=== PATIENT | female | born 1935 | race Caucasian/White ===

== ENCOUNTER 2018-11-16 17:07 | Inpatient (IN) ==
[2018-11-16] MEDS ORDERED: Ondansetron ODT 4 MG TAB.RAPDIS SL PRN (18:25)
[2018-11-16] MEDS ORDERED: Mag Hydrox/Al Hydrox/Simeth 30 ML UDC PO PRN (18:28)
[2018-11-16] MEDS ORDERED: D5% in Water 1,000 ML IVC PRN (18:30)
[2018-11-16] MEDS ORDERED: Dextrose Gel 15 GM/37.5 ML TUBE PO PRN ×2 (18:30)
[2018-11-16] MEDS ORDERED: *HR* Dextrose 50 % in Water (Syg) 50 ML SYRINGE IVP PRN (18:30)
[2018-11-16] MEDS: Insulin LISPRO 300 UNITS/3 ML VIAL SQ SCH (20:35)
[2018-11-16] MEDS: hydrALAZINE 25 MG TABLET PO SCH (23:27)
[2018-11-17] MEDS: cloNIDine HCl 0.1 MG TABLET PO PRN (04:31)
[2018-11-17] MEDS: *HR* Enoxaparin 30 MG/0.3 ML SYRINGE SQ SCH (04:31)
[2018-11-17 05:37] LABS: Basophils # 0.1 K/mcL (0.0-0.2); Basophils % 0.5 %; Eosinophils # 0.3 K/mcL (0.0-0.6); Eosinophils % 3.1 %; Hematocrit 25.6 % (35.3-44.9); Hemoglobin 8.3 g/dL (11.5-15.4); Immature Granulocytes % 0.5 % (0-4); Lymphocytes # 1.3 K/mcL (0.6-4.6); Lymphocytes % 11.6 %; Mean Corpuscular HGB Conc 32.4 g/dL (31.6-35.5); Mean Corpuscular Hemoglobin 26.6 pg (28.0-33.3); Mean Corpuscular Volume 82.1 fL (83.0-100.0); Mean Platelet Volume 9.8 fL (9.4-12.4); Monocytes # 0.9 K/mcL (0.0-1.3); Monocytes % 8.3 %; Neutrophils # 8.4 K/mcL (1.6-8.9); Platelet Count 237 K/mcL (140-400); Red Blood Count 3.12 M/mcL (3.82-4.97); Red Cell Distribution Width 17.1 % (11.5-14.5)
[2018-11-17 05:40] LABS: Prothrombin Time 11.4 Seconds (9.4-12.1)
[2018-11-17 05:42] LABS: Activated Partial Thrombo Time 33.2 Seconds (26.0-36.0)
[2018-11-17] MEDS: Insulin LISPRO 300 UNITS/3 ML VIAL SQ SCH ×4 (08:01→21:21)
[2018-11-17] MEDS: Furosemide 20 MG TABLET PO SCH (08:15)
[2018-11-17] MEDS: amLODIPine 5 MG TABLET PO SCH (08:15)
[2018-11-17] MEDS: Diltiazem CD (24hr) 180 MG CAPSULE PO SCH (08:16)
[2018-11-17] MEDS: Aspirin Enteric Coated 81 MG Tablet PO SCH (08:16)
[2018-11-17] MEDS: hydrALAZINE 25 MG TABLET PO SCH ×3 (08:16→23:11)
[2018-11-17] MEDS: (Ezetimibe 10 MG) PO SCH (08:17)
[2018-11-17] MEDS: Isosorbide MONOnitrate (24 HR) 60 MG TAB.ER.24H PO SCH (08:19)
[2018-11-17 08:47] LABS: Albumin 3.4 g/dL (3.5-5.7); Albumin/Globulin Ratio 1.5 (1.1-2.2); Bilirubin,Total 0.4 mg/dL (0.3-1.0); Calcium 8.5 mg/dL (8.6-10.3); Globulin 2.3 g/dL (2.4-3.5); Magnesium 1.9 mg/dL (1.6-2.6); Potassium 3.2 mEq/L (3.5-5.1); Total Protein 5.7 g/dL (6.4-8.9)
--- NOTE | 2018-11-17 10:39 | Internal Med History&Physical ---
Date of Encounter: 11/17/18 Time of Encounter: 10:29 Assessment and Plan (1) Non-ST elevation UT (NSTEMI) Current visit: Yes Status: Acute Patient was admitted to this facility for further cardiac rehabilitation due to deconditioning. Patient presented with chest pain and was ruled in as an UT at [facility]. Patient had a catheterization on 11/10/18, with a PTCA of the circumflex. Patient also had experienced uncontrolled hypertension at time of admission. Patient states that she has had no further chest pain or palpitations since her catheterization. Denies any dyspnea during exertion. Therapy evaluation with recommendations are pending. Vital signs have been stable during her stay. We will continue with current medications (2) HTN (hypertension) Current visit: No Status: Chronic Patient with a recent history of uncontrolled hypertension during her admission [facility]. Currently patient's systolic blood pressure is stable but has been slightly elevated at 150-160. We will evaluate her current medications for titration with a systolic blood pressure goal of less than 150. Qualifiers: Hypertension type: unspecified Qualified Code(s): I10 - Essential (primary) hypertension (3) Diabetes Current visit: No Status: Chronic No acute issues noted. Patient's glucoses been fairly well controlled with most readings less than 150. We will continue with current medications Qualifiers: Diabetes mellitus type: type 2 Diabetes mellitus halfway insulin use: [facility] halfway use Diabetes mellitus complication status: with other sp ecified complication Qualified Code(s): E11.69 - Type 2 diabetes mellitus with other specified complication (4) CKD (chronic kidney disease) Current visit: No Status: Chronic Patient with history of chronic kidney disease. Most recent creatinine is at 2.01. We will continue with current medications and monitor patient's renal status to serial labs. Qualifiers: Qualified Code(s): N18.9 - Chronic kidney disease, unspecified (5) Chronic diastolic (congestive) heart failure Current visit: No Status: Chronic No acute issues. Lungs are clear. Patient denies any palpitations or chest discomforts. Noted slight nonpitting edema to lower extremities. Most recent BNP at 390 We will continue with current medications and with daily weights Internal Medicine - H&P: HPI Chief complaint: Coronary Artery Disease Admitted From: Hospital to Hospital Transfer Plans for Post Hospital Care: Home History of present illness: Ms. Elizabeth is a 83 year old female with known PMH of HTN and CKD-3. She was sent to the ED at [facility] after being evaluated at the Cardiovascular center and was found that her BP was elevated @ 252/100 prior to the stress test. Pt stated she has left chest wall pain the prior night, which radiated to her left shoulder and arm. Her pain was 7/10 in severity, pressure like, felt numbness in left arm and lasted for 2 hrs. Pt did mention she has been having intermittent CP for few months. In the ER her EKG showed NSR with chronic LBBB. She was found to have elevated troponins rule out acute UT. She was seen by cardiology but cath had to be delayed for suspected GI bleed after patient was on full anticoagulation. She was seen by GI for suspected GI bleed and had EGD done showing grade C erosive esophagitis and non bleeding angiectasia. It was recommended to continue PPI BI and transfuse PRBC to keep hgb> 8. Cardiac cath was delayed after endoscopy for about a week for complications with worsening shortness of breath secondary to acute worsening of chronic diastolic CHF which resolved with diuresis She underwent a left heart cath on 11/10 showing 85% stenosis to circ OM with drug eluting stent placement. She is to continue aspirin and plavix . She was transfused 1 unit PRBC to keep hgb > 8. She has resistant hypertension and is b eing followed by nephrology for secondary causes of hypertension. BP has been stable while being managed with coreg, cardizem, hydralazine and amlodipine. She was on losartan and chlorthalidone which had to be discontinued due to kidney disease. Patient was transferred to this facility for further cardiac rehabilitation due to deconditioning. Patient states that she has not had any further chest pain since her catheterization and denies any palpitations or dyspnea. No further reported signs of active GI bleeding has been noted per medical records. Patient states that she has been participating in therapy today during her evaluation and felt fine. Vital signs have remained stable during her stay Past Med Surg Social Fam HX - Past Medical History Medical history: CHF, coronary artery disease, GERD, GI bleed, hyperlipidemia, hypertension, renal disease, thyroid disease, other Additional medical history: Stage 3 kidney failure, diverticulitis, Diabetes Psychiatric history: anxiety - Past Surgical History Surgical History: non-contributory Additional surgical history: sinus surgery x5, eye surgeries x5, tubal ligation, tonisllectomy, left foot surgery, heart cath x 1 stent - Social History Smoking Status: Former smoker Smokeless Tobacco Status: No Alcohol use: none Drug use: none - Family History Mother Living Status: Cause of : lung cancer Father Living Status: Cause of : heart attack Internal Medicine - H&P: Meds Alendronate Sodium [Fosamax] 70 mg PO JESSICA 10/30/18 [History] Amitriptyline [Elavil] 25 mg PO HS 10/30/18 [History] Ezetimibe 10 mg PO DAILY 10/30/18 [History] Levothyroxine [Synthroid] 112 mcg PO QAM 10/30/18 [History] Sucralfate [Carafate] 1 gm PO QID 30 Days #120 oral.susp 11/05/18 [Rx] Aspirin [Lo-Dose Aspirin EC] 81 mg PO DAILY #60 tablet. 11/16/18 [Rx] Atorvastatin [Lipitor] 80 mg PO HS #90 tablet 11/16/18 [Rx] Carvedilol [Coreg] 25 mg PO BIDWM #120 tablet 11/16/18 [Rx] Clopidogrel [Plavix] 75 mg PO DAILY #90 tablet 11/16/18 [Rx] Diltiazem CD (24hr) [Cardizem CD] 360 mg PO DAILY #120 cap.er.24h 11/16/18 [Rx] Docusate [Colace] 100 mg PO BID PRN #60 capsule 11/16/18 [Rx] Ferrous Sulfate 325 mg PO BIDWM #60 tablet 11/16/18 [Rx] Furosemide [Lasix] 40 mg PO DAILY #60 tab 11/16/18 [Rx] Isosorbide MONOnitrate (24 HR) [Imdur] 120 mg PO DAILY #120 tab.er.24h 11/16/18 [Rx] Omeprazole [PriLOSEC] 40 mg PO BIDAC #120 capsule. 11/16/18 [Rx] amLODIPine [Norvasc] 10 mg PO DAILY #60 tablet 11/16/18 [Rx] hydrALAZINE [HydrALAZINE] 100 mg PO Q8HR #120 tablet 11/16/18 [Rx] Allergy/AdvReac Type Severity Reaction Status Date / Time codeine Allergy Nausea, Verified 10/30/18 11:59 Vomiting lisinopril Allergy Cough Verified 10/30/18 11:59 Penicillins Allergy Hives Verified 10/30/18 11:59 tramadol Allergy Joint Pain Verified 10/30/18 11:59 All Systems PM: A 10-system review of systems was performed and is negative for pertinent findings except as documented above in the HPI. - Constitutional Constitutional: as per HPI, no chills, no fever(s), no night sweats - EENT Eyes: as per HPI, no change in vision, no discharge, no pain, no photophobia Ears: as per HPI, no ear discharge, no ear pain, no tinnitus Nose, mouth and throat: as per HPI, no dysphagia, no nasal discharge, no neck pain, no sore throat - Cardiovascular Cardiovascular ROS IM: as per HPI, no chest pain, no diaphoresis, no dyspnea, no lightheadedness, no palpitations, no syncope - Respiratory Respiratory: as per HPI, no cough, no dyspnea, no wheezing, no excessive phlegm production - Gastrointestinal Gastrointestinal: as per HPI, no abdominal pain, no diarrhea, no hematemesis, no hematochezia, no melena, no nausea, no vomiting - Genitourinary Genitourinary: as per HPI, no change in urinary stream, no dysuria, no flank pain, no hematuria - Musculoskeletal Musculoskeletal ROS IM: as per HPI, no numbness, no tingling - Integumentary Integumentary IM: as per HPI, no rash, no unusual bruising - Neurological Neurological ROS: as per HPI, no confusion, no convulsions, no focal weakness, no numbness, no tingling, no tremor(s) - Hematologic/Lymphatic Hematologic/Lymphatic: no easy bruising - Constitutional Vitals: Temp Pulse Resp BP Pulse Ox 98.2 F 96 17 164/71 92 11/17/18 07:14 11/17/18 07:14 11/17/18 07:14 11/17/18 07:14 11/17/18 07:14 General appearance: Present: A&O X 3 - Head Head exam: Present: atraumatic, normocephalic - Eye Eye exam: Present: PERRL, conjuntiva pink, sclera anicteric Pupils: Present: PERRL - Neck Neck exam general surgery: Present: supple, trachea midline. Absent: lymphadenopathy - Respiratory Respiratory exam: Present: CTAB. Absent: accessory muscle use, rales, rhonchi, wheezes - Cardiovascular Cardiovascular exam: Present: RRR, +S1, +S2. Absent: diastolic murmur, gallop, rubs, systolic murmur - GI/Abdominal GI/Abdominal exam: Present: normal bowel sounds, soft, no peritoneal signs. Absent: distended, tenderness - Extremities Exam Extremities exam: Present: pedal edema, warm, radial pulses palpable and symmetrical. Absent: calf tenderness, cyanotic Additional comments: Patient shows slight nonpitting edema to bilateral legs - Neurological Exam Neurological exam: Present: CN II-XII intact, oriented X3, no focal deficits. Absent: pronater drift, facial droop, speech deficit - Skin Skin exam: Present: dry, intact Internal Med - H&P Results - Labs CBC & Chem 7: 11/17/18 05:10 11/17/18 07:44 Labs: Short CBC 11/17/18 Range/Units 05:10 WBC 11.0 (4.3-11.1) K/mcL Hgb 8.3 L (11.5-15.4) g/dL Hct 25.6 L (35.3-44.9) % Plt Count 237 (140-400) K/mcL Neutrophils # 8.4 (1.6-8.9) K/mcL BMP 11/17/18 07:44 Sodium 135 L Potassium 3.2 L Chloride 99 Carbon Dioxide 26 BUN 33 H Creatinine 2.01 H Glucose 102 Calcium 8.5 L Liver Function 11/17/18 Range/Units 07:44 Total Bilirubin 0.4 (0.3-1.0) mg/dL AST 19 (13-39) Units/L ALT 27 (7-52) Units/L Alkaline Phosphatase 73 (34-104) Units/L Albumin 3.4 L (3.5-5.7) g/dL
[2018-11-17] MEDS: Sulfamethoxazole/Trimeth DS 1 EACH TABLET PO SCH ×2 (14:09→21:20)
[2018-11-17] MEDS: Melatonin 3 MG TABLET PO PRN (21:21)
[2018-11-18] MEDS: *HR* Enoxaparin 30 MG/0.3 ML SYRINGE SQ SCH (06:16)
[2018-11-18] MEDS: Insulin LISPRO 300 UNITS/3 ML VIAL SQ SCH ×4 (09:27→21:05)
[2018-11-18] MEDS: Aspirin Enteric Coated 81 MG Tablet PO SCH (09:31)
[2018-11-18] MEDS: Sulfamethoxazole/Trimeth DS 1 EACH TABLET PO SCH ×2 (09:31→21:07)
[2018-11-18] MEDS: Isosorbide MONOnitrate (24 HR) 60 MG TAB.ER.24H PO SCH (09:31)
[2018-11-18] MEDS: Diltiazem CD (24hr) 180 MG CAPSULE PO SCH (09:31)
[2018-11-18] MEDS: hydrALAZINE 25 MG TABLET PO SCH ×4 (09:32→23:31)
[2018-11-18] MEDS: Furosemide 20 MG TABLET PO SCH (09:32)
[2018-11-18] MEDS: amLODIPine 5 MG TABLET PO SCH (09:32)
[2018-11-18] MEDS: (Ezetimibe 10 MG) PO SCH (09:37)
[2018-11-18] MEDS: cloNIDine HCl 0.1 MG TABLET PO PRN (11:02)
[2018-11-18] MEDS ORDERED: cloNIDine HCl 0.1 MG TABLET PO PRN (11:30)
--- NOTE | 2018-11-18 11:57 | Internal Med Progress Note ---
Date of Encounter: 11/18/18 Time of Encounter: 11:53 - Assessment and plan (1) Non-ST elevation NC (NSTEMI) Current Visit: Yes Status: Acute Assessment and plan: Patient denies any chest discomforts or palpitations but continues to have dyspnea on exertion even while on oxygen. Patient has maintained her oxygen saturation is long as she maintains supplemental oxygen when she does therapy. Patient recently performed therapy without oxygen and desaturated to the mid 80s and became dyspneic. Patient systolic blood pressure also remains elevated, greater than 170. We will lower her parameters for use of when necessary robby nidine. We will review patient's current scheduled hypertension medications for possible titration. Patient noted to continue to have fine basilar rales. We will order daily weights and monitor closely due to patient's most recent episode of CHF (2) HTN (hypertension) Current Visit: Yes Status: Chronic Assessment and plan: Patient's blood pressure remains elevated. We will decrease parameters for when necessary clonidine and will evaluate patient's scheduled hypertension meds for titration. Patient's blood pressure goal is to maintain systolic blood pressure less than 150. Qualifiers: Hypertension type: unspecified Qualified Code(s): I10 - Essential (primary) hypertension (3) Diabetes Current Visit: Yes Status: Chronic Assessment and plan: No acute issues. Patient's glucose has been pretty well-controlled with most readings less than 200. We will continue with current coverage Qualifiers: Diabetes mellitus type: type 2 Diabetes mellitus nursing home insulin use: without nursing home use Diabetes mellitus complication status: with other specified complication Qualified Code(s): E11.69 - Type 2 diabetes mellitus with other specified complication (4) CKD (chronic kidney disease) Current Visit: Yes Status: Chronic Assessment and plan: No acute issues. We will continue to monitor patient's renal status with serial labs. We will continue with current medications. Qualifiers: Chronic kidney disease stage: unspecified stage Qualified Code(s): N18.9 - Chronic kidney disease, unspecified (5) Chronic diastolic (congestive) heart failure Current Visit: Yes Status: Chronic Assessment and plan: Patient continues to have dyspnea on exertion, even while on supplemental oxy gen. We will continue to titrate patient's oxygen to maintain a saturation greater than 90%. We will order daily weights. Patient with recent episode of CHF during hospitalization at [place], where she was hospitalized for a myocardial infarction resulting in a PTCA Due to patient's recent history of CHF following an acute myocardial infarction and with her hypoxia during exertion, I would recommend the patient will continue on oxygen to maintain her saturation greater than 90% during recovery of her cardiac syndrome. I would recommend patient be qualified for oxygen for home use, due to reduce her incidence of CHF and possible dysrhythmias related to hypoxia from her cardiac syndrome. - Time Spent With Patient less than 15 minutes - Subjective Interval history: Patient appears relaxant denies any chest discomforts or palpitations. Patient states that she continues to have slight dyspnea during therapy when ambulating distances while on oxygen. Patient states that she is able to catch her breath and recuperate when short rest. Patient has been placed on oxygen due to dyspnea and noted hypoxia during therapy. While patient was a ambulating greater than 50 feet, her oxygen levels has dropped to the mid 80s. Patient endorses slight orthopnea and has had to maintain her head of the bed greater than 30 degrees since her hospitalization. Per medical records patient has had an episode of pulmonary edema and CHF during her admission at [place]. Nursing has reported patient continues to have elevated systolic blood pressure greater than 170 on several for readings. Patient continues to have when necessary clonidine available. Patient with a history of malignant hypertension which has been very resistant to multiple categories of hypertension medications - Constitutional Vitals: Temp Pulse Resp BP Pulse Ox 97.9 F 91 19 177/77 94 11/18/18 10:57 11/18/18 10:57 11/18/18 10:57 11/18/18 10:57 11/18/18 10:57 General appearance: Present: A&O X 3 - Head Head exam: Present: atraumatic, normocephalic - Eye Eye exam: Present: PERRL, conjuntiva pink, sclera anicteric Pupils: Present: PERRL - Neck Neck exam general surgery: Present: supple, trachea midline. Absent: lympha denopathy - Respiratory Respiratory exam: Present: decreased breath sounds, CTAB, rales. Absent: accessory muscle use, rhonchi, wheezes Additional comments: Lungs are clear throughout upper hurd was noted fine bibasilar rales poste riorly. Respiratory effort appears relaxed while at rest. No productive cough noted. - Cardiovascular Cardiovascular exam: Present: RRR, +S1, +S2, systolic murmur. Absent: diastolic murmur, gallop, rubs Additional comments: Patient noted to have a soft systolic murmur to her left sternal base. Patient systolic blood pressure remains elevated at 170-180. - GI/Abdominal GI/Abdominal exam: Present: normal bowel sounds, soft, no peritoneal signs. Absent: distended, tenderness - Extremities Exam Extremities exam: Present: warm, radial pulses palpable and symmetrical. Absent: calf tenderness, cyanotic, pedal edema - Neurological Exam Neurological exam: Present: CN II-XII intact, oriented X3, no focal deficits. Absent: pronater drift, facial droop, speech deficit - Skin Skin exam: Present: dry, intact Internal Medicine: Result - Labs CBC & Chem 7: 11/17/18 05:10 11/17/18 07:44 - ABG Interpretation ABG results: PT/INR, D-dimer PT 11.4 Seconds (9.4-12.1) 11/17/18 05:10 Consult Discharge Plan - Plan Referrals: Romelia Molina CNP [Primary Care Provider] -
[2018-11-18] MEDS: Acetaminophen 325 MG TABLET PO PRN (13:33)
[2018-11-18] MEDS: Melatonin 3 MG TABLET PO PRN (21:07)
[2018-11-19] MEDS: *HR* Enoxaparin 30 MG/0.3 ML SYRINGE SQ SCH (05:23)
[2018-11-19] MEDS: Insulin LISPRO 300 UNITS/3 ML VIAL SQ SCH ×4 (07:29→20:54)
[2018-11-19] MEDS: amLODIPine 5 MG TABLET PO SCH (07:43)
[2018-11-19] MEDS: Sulfamethoxazole/Trimeth DS 1 EACH TABLET PO SCH ×2 (07:43→20:54)
[2018-11-19] MEDS: Isosorbide MONOnitrate (24 HR) 60 MG TAB.ER.24H PO SCH (07:44)
[2018-11-19] MEDS: Diltiazem CD (24hr) 180 MG CAPSULE PO SCH (07:44)
[2018-11-19] MEDS: Aspirin Enteric Coated 81 MG Tablet PO SCH (07:44)
[2018-11-19] MEDS: Furosemide 20 MG TABLET PO SCH (07:44)
[2018-11-19] MEDS: hydrALAZINE 25 MG TABLET PO SCH ×2 (07:45→15:21)
[2018-11-19] MEDS: (Ezetimibe 10 MG) PO SCH (07:46)
[2018-11-19] MEDS ORDERED: *HR* LORazepam 0.5 MG TABLET PO ONE (11:48)
[2018-11-19] MEDS ORDERED: hydrOXYzine pamoate 25 MG CAPSULE PO ONE (12:00)
--- NOTE | 2018-11-19 12:32 | Discharge Summary ---
Date of Encounter: 11/19/18 Time of Encounter: 12:29 - Discharge Diagnosis (1) Non-ST elevation PR (NSTEMI) Priority: Primary Status: Acute Comments: Continue current medication. Follow up with supply assistant as scheduled. Angy nue Plavix. (2) CKD (chronic kidney disease) Priority: Secondary Status: Chronic Comments: Stable. Follow up with PCP as scheduled. Within one week. Qualifiers: Chronic kidney disease stage: unspecified stage Qualified Code(s): N18.9 - Chronic kidney disease, unspecified (3) Chronic diastolic (congestive) heart failure Priority: Secondary Status: Chronic Comments: Stable. Monitor for decompensation. Continue Lasix. Follow up with PCP. (4) Diabetes Priority: Secondary Status: Chronic Comments: Controlled with current medication. Follow up with PCP. Monitor fingerstick blood sugars. Qualifiers: Diabetes mellitus type: type 2 Diabetes mellitus half-way insulin use: without black top roller use Diabetes mellitus complication status: with other specified complication Qualified Code(s): E11.69 - Type 2 diabetes mellitus with other specified complication (5) HTN (hypertension) Priority: Secondary Status: Chronic Comments: Controlled with current medication. Monitor blood pressure. Qualifiers: Hypertension type: unspecified Qualified Code(s): I10 - Essential (primary) hypertension Hospital course: Ms. Elizabeth is a 83 year old female discharging to home. Going home on home oxygen. Unable to wean oxygen. O2 sats to upper 80s without oxygen. Patient is able to perform ADLs and ambulate household distances with Walker independently. Completed inpatient rehab goals. Patient is status post cardiac 8\115. To Continue Aspirin and Plavix. Past Medical History of Hypertension, Diabetes, CKD Stage III and CHF. At [facility],EGD done showing grade C erosive esophagitis and non bleeding angiectasia. Was transfuse one unit of blood. Patient is to follow up with nephrology, cardiology and PCP. Currently lying comfortably in bed, denies fever, chills, nausea vomiting or diarrhea. Denies shortness of breath or chest pain. Was short of breath earlier in the day and chest x-ray was repeated which was negative. Discharge discussed with: patient, family, nurse, social work - Time Spent with Patient Total time spent providing and/or coordinating discharge services: Time spent: Less than 30 minutes - Discharge Medications Prescriptions: No Action Alendronate Sodium [Fosamax] 70 mg PO JESSICA Amitriptyline [Elavil] 25 mg PO HS Ezetimibe 10 mg PO DAILY Levothyroxine [Synthroid] 112 mcg PO QAM Sucralfate [Carafate] 1 gm PO QID 30 Days #120 oral.susp Clopidogrel [Plavix] 75 mg PO DAILY #90 tablet Ferrous Sulfate 325 mg PO BIDWM #60 tablet Diltiazem CD (24hr) [Cardizem CD] 360 mg PO DAILY #120 cap.er.24h Atorvastatin [Lipitor] 80 mg PO HS #90 tablet Carvedilol [Coreg] 25 mg PO BIDWM #120 tablet Isosorbide MONOnitrate (24 HR) [Imdur] 120 mg PO DAILY #120 tab.er.24h amLODIPine [Norvasc] 10 mg PO DAILY #60 tablet hydrALAZINE [HydrALAZINE] 100 mg PO Q8HR #120 tablet Aspirin [Lo-Dose Aspirin EC] 81 mg PO DAILY #60 tablet. Docusate [Colace] 100 mg PO BID PRN #60 capsule PRN Reason: Constipation Omeprazole [PriLOSEC] 40 mg PO BIDAC #120 capsule. Furosemide [Lasix] 40 mg PO DAILY #60 tab Home Medications: Alendronate Sodium [Fosamax] 70 mg PO JESSICA 10/30/18 [History] Amitriptyline [Elavil] 25 mg PO HS 10/30/18 [History] Ezetimibe 10 mg PO DAILY 10/30/18 [History] Levothyroxine [Synthroid] 112 mcg PO QAM 10/30/18 [History] Sucralfate [Carafate] 1 gm PO QID 30 Days #120 oral.susp 11/05/18 [Rx] Aspirin [Lo-Dose Aspirin EC] 81 mg PO DAILY #60 tablet. 11/16/18 [Rx] Atorvastatin [Lipitor] 80 mg PO HS #90 tablet 11/16/18 [Rx] Carvedilol [Coreg] 25 mg PO BIDWM #120 tablet 11/16/18 [Rx] Clopidogrel [Plavix] 75 mg PO DAILY #90 tablet 11/16/18 [Rx] Diltiazem CD (24hr) [Cardizem CD] 360 mg PO DAILY #120 cap.er.24h 11/16/18 [Rx] Docusate [Colace] 100 mg PO BID PRN #60 capsule 11/16/18 [Rx] Ferrous Sulfate 325 mg PO BIDWM #60 tablet 11/16/18 [Rx] Furosemide [Lasix] 40 mg PO DAILY #60 tab 11/16/18 [Rx] Isosorbide MONOnitrate (24 HR) [Imdur] 120 mg PO DAILY #120 tab.er.24h 11/16/18 [Rx] Omeprazole [PriLOSEC] 40 mg PO BIDAC #120 capsule.dr 11/16/18 [Rx] amLODIPine [Norvasc] 10 mg PO DAILY #60 tablet 11/16/18 [Rx] hydrALAZINE [HydrALAZINE] 100 mg PO Q8HR #120 tablet 11/16/18 [Rx] Acetaminophen [Tylenol] 650 mg PO Q4HR PRN tablet 11/19/18 [Rx] Insulin LISPRO [HumaLOG] 0 units SQ HS vial 11/19/18 [Rx] Insulin LISPRO [HumaLOG] 0 units SQ TIDAC vial 11/19/18 [Rx] Polyethylene Glycol 3350 [MiraLAX] 17 gm PO DAILY PRN powd.pack 11/19/18 [Rx] Sulfamethoxazole/Trimeth DS [Bactrim Ds] 0.5 each PO BID 5 Days #5 tablet 11/19/18 [Rx] hydrOXYzine pamoate [Vistaril] 25 mg PO Q8HR PRN #10 capsule 11/19/18 [Rx] Allergies/Adverse Reactions: Allergy/AdvReac Type Severity Reaction Status Date / Time codeine Allergy Nausea, Verified 10/30/18 11:59 Vomiting lisinopril Allergy Cough Verified 10/30/18 11:59 Penicillins Allergy Hives Verified 10/30/18 11:59 tramadol Allergy Joint Pain Verified 10/30/18 11:59 Date of admission: 11/16/18 17:24 Primary care physician: Romelia Molina CNP Consults: 11/16/18 18:13 Consult to Occupational Therapy [CONS] Routine Comment: Evaluate, develop and implement POC Reason for Consult: Deconditioning Does patient have active BEDREST order?: No Is patient medically & hemodynamically stable?: Yes Consult to Physical Therapy [CONS] Routine Comment: Evaluate, develop and implement POC Reason for Consult: Deconditioning Does patient have active BEDREST order?: No Is patient medically & hemodynamically stable?: Yes Consult to Recreational Therapy [CONS] Routine Comment: Evaluate, develop and implement POC Consult to Inspector Casing [CONS] Routine Reason for SW Consult: Deconditioning Discharging clinician: Reese Patel Anticipated date of discharge: 11/19/18 - Constitutional Vitals: Temp Pulse Resp BP Pulse Ox 98.8 F 84 16 162/69 90 11/19/18 07:08 11/19/18 07:08 11/19/18 07:08 11/19/18 07:08 11/19/18 07:08 General appearance: Present: cooperative, A&O X 3, pleasant, no acute distress, answers questions appropriately - Head Head exam: Present: atraumatic, normocephalic - Eye Eye exam: Present: PERRL, conjuntiva pink, sclera anicteric Pupils: Present: PERRL - Neck Neck exam general surgery: Present: supple, trachea midline. Absent: lymphadenopathy - Respiratory Respiratory exam: Present: CTAB. Absent: accessory muscle use, rales, rhonchi, wheezes - Cardiovascular Cardiovascular exam: Present: RRR, +S1, +S2. Absent: diastolic murmur, gallop, rubs, systolic murmur - GI/Abdominal GI/Abdominal exam: Present: normal bowel sounds, soft, no peritoneal signs. Absent: distended, tenderness - Extremities Exam Extremities exam: Present: warm, radial pulses palpable and symmetrical. Absent: calf tenderness, cyanotic, pedal edema - Neurological Exam Neurological exam: Present: CN II-XII intact, oriented X3, no focal deficits. A bsent: pronater drift, facial droop, speech deficit - Skin Skin exam: Present: dry, intact - Patient Status Disposition: Home, Self-Care Condition: Good Functional capacity at discharge: uses cane/walker Overall status at discharge: patient is progressing back to baseline - Discharge Instructions Instructions: Heart Failure (DC) Follow Up With: Romelia Molina CNP [Primary Care Provider] - 11/24/18 8:00 am (Left breast nodule seen on scan [pt unaware]. Please follow-up and address at hospital d/c follow-up appointment ) Margo Duggan DO [Partnered Physician] - 12/22/18 10:30 am (@ [facility]) - Diet and Activity Activity: as per physical therapy Diet: diabetic diet
[2018-11-19] MEDS ORDERED: Albuterol 2.5 MG/3 ML NEBULIZER IH PRN (13:55)
[2018-11-19] MEDS ORDERED: Aspirin 81 MG TAB.CHEW PO STA (17:56)
[2018-11-19] MEDS ORDERED: Nitroglycerin 1 INCH/GM PACKET TP ONE (17:56)
[2018-11-19 19:00] LABS: Calcium 8.2 mg/dL (8.6-10.3); Potassium 3.8 mEq/L (3.5-5.1)
[2018-11-19] MEDS ORDERED: Heparin 25,000 UNIT/250 ML D5W 25,000 UNIT/250 ML IV.SOLN IVC SCH ×2 (19:00→19:30)
[2018-11-19] MEDS ORDERED: *HR* Heparin 5,000 UNIT/ML VIAL IVP PRN ×4 (19:00→19:17)
[2018-11-19] MEDS ORDERED: *HR* Heparin 5,000 UNIT/ML VIAL IVP ONE ×2 (19:00→19:17)
[2018-11-19 19:09] LABS: Hematocrit 24.2 % (35.3-44.9); Mean Corpuscular HGB Conc 33.1 g/dL (31.6-35.5); Mean Corpuscular Hemoglobin 27.1 pg (28.0-33.3); Mean Platelet Volume 10.4 fL (9.4-12.4); Platelet Count 226 K/mcL (140-400); Red Blood Count 2.95 M/mcL (3.82-4.97); Red Cell Distribution Width 17.2 % (11.5-14.5)
[2018-11-19 19:29] LABS: Heparin anti-factor XA UFH 0.12 IU/mL (0.30-0.70)
[2018-11-19 19:31] LABS: Prothrombin Time 11.3 Seconds (9.4-12.1)
[2018-11-19 19:32] LABS: Activated Partial Thrombo Time 31.6 Seconds (26.0-36.0)
[2018-11-19] MEDS ORDERED: hydrOXYzine pamoate 25 MG CAPSULE PO PRN (20:00)
[2018-11-19] MEDS: Acetaminophen 325 MG TABLET PO PRN (20:37)
--- NOTE | 2018-11-19 20:41 | Internal Med Progress Note ---
Date of Encounter: 11/19/18 Time of Encounter: 17:00 - Assessment and plan (1) Chest pain Current Visit: Yes Status: Acute Assessment and plan: Patient be transferred because the patient is having chest pain with an elevated d-dimer but also showing signs of renal insufficiency but with the renal insufficiency IV contrast cannot be given at this time we will recommend the use of VQ scan for further workup to make sure that this is not a pulmonary event. Is apparent though from reviewing of the chart though that she has been having some hypoxia that has been going on and the elevated troponin though very subtle could also be related to the renal insufficiency versus that of a true non-STEMI NV patient will be transferred for further care and management patient was started on pulmonary emboli dosing in the event that this is a pulmonary emboli she was also given aspirin nitroglycerin and arrangements for transfer I shortly spoke after my evaluation to Dr. Patel who will manage the final arrangements for transfer to [facility] for further management Qualifiers: Chest pain type: other chest pain Qualified Code(s): R07.89 - Other chest p ain; R07.8 - Other chest pain - Time Spent With Patient less than 15 minutes - Subjective Interval history: Chest pain patient developed chest pain while on the floor midsternal and as result I was called down because Dr. Patel could not be reached to evaluate the patient patient appears to be stable at this time she is not diaphoretic patient though is complaining of midsternal chest pain with no radiation up to neck and jaw patient had no associated diaphoresis with this nothing seems to make it better nothing seems to make it worse - Constitutional Vitals: Temp Pulse Resp BP Pulse Ox 98.8 F 63 18 148/64 91 11/19/18 07:08 11/19/18 18:56 11/19/18 18:28 11/19/18 18:56 11/19/18 18:56 General appearance: Present: cooperative, A&O X 3, pleasant, no acute distress, answers questions appropriately - Head Head exam: Present: atraumatic, normocephalic - Eye Eye exam: Present: PERRL, conjuntiva pink, sclera anicteric Pupils: Present: PERRL - Neck Neck exam general surgery: Present: supple, trachea midline. Absent: lymphadenopathy - Respiratory Respiratory exam: Present: CTAB. Absent: accessory muscle use, rales, rhonchi, wheezes - Cardiovascular Cardiovascular exam: Present: RRR, +S1, +S2. Absent: diastolic murmur, gallop, rubs, systolic murmur - GI/Abdominal GI/Abdominal exam: Present: normal bowel sounds, soft, no peritoneal signs. Absent: distended, tenderness - Extremities Exam Extremities exam: Present: warm, radial pulses palpable and symmetrical. Absent: calf tenderness, cyanotic, pedal edema - Neurological Exam Neurological exam: Present: CN II-XII intact, oriented X3, no focal deficits. Absent: pronater drift, facial droop, speech deficit - Skin Skin exam: Present: dry, intact Internal Medicine: Result - Labs CBC & Chem 7: 11/19/18 18:25 11/19/18 18:25 Labs: Short CBC 11/19/18 Range/Units 18:25 WBC 8.0 (4.3-11.1) K/mcL Hgb 8.0 L (11.5-15.4) g/dL Hct 24.2 L (35.3-44.9) % Plt Count 226 (140-400) K/mcL BMP 11/19/18 11/19/18 05:05 18:25 Sodium 128 L Potassium 3.6 3.8 Chloride 99 Carbon Dioxide 21 L BUN 39 H Creatinine 2.76 H Glucose 118 H Calcium 8.2 L Cardiac Enzymes 11/19/18 Range/Units 17:40 Troponin I 0.09 H* (< 0.04) ng/mL - ABG Interpretation ABG results: PT/INR, D-dimer PT 11.3 Seconds (9.4-12.1) 11/19/18 18:25 D-Dimer 1444 ng/mLFEU (0-500) H 11/19/18 18:25 - EKG Data interpreted by ERMD Rhythm: NSR (Radiating) Ectopy: PACs [place]/QRS: normal, LBBB QRS morphology: other (Patient has left bundle-branch block present) - Impressions Impressions Chest X-Ray 11/19/18 10:43 IMPRESSION: Stable chest. D/ / Brandon Gilmore MD / Brandon Gilmore MD Interpreting Provider: Brandon Gilmore MD If review of the chest x-ray is noted in the impression it says stable but above it says her some developing changes which could be consistent with that of a pulmonary emboli as result a d-dimer was ordered it is elevated but the p atient's kidney function is such that she will need to have a VQ scan which then indicated the need for transfer patient was then go ahead and started on heparin drip we did give her nitroglycerin for the chest pain as well as a baby aspirin. Consult Discharge Plan - Plan Instructions: Heart Failure (DC) Referrals: Romelia oMlina CNP [Primary Care Provider] - 11/24/18 8:00 am (Left breast nodule seen on scan [pt unaware]. Please follow-up and address at hospital d/c follow-up appointment ) Margo Duggan DO [Partnered Physician] - 12/22/18 10:30 am (@ [facility]) Prescriptions: Sulfamethoxazole/Trimeth DS [Bactrim Ds] 0.5 each PO BID 5 Days #5 tablet hydrOXYzine pamoate [Vistaril] 25 mg PO Q8HR PRN #10 capsule PRN Reason: Anxiety
[2018-11-20 03:25] VITALS: BP 149/71
--- NOTE | 2018-11-20 12:06 | Electrocardiograph Report ---
[place] [id number] Test Date: 2018-11-19 Pat Name: Priscila Elizabeth Department: 2001 Room: 109 Gender: F [employer]: Tb : 1935 Requested By: Reese Patel Order Number: [id number] Reading MD: Samuel Mendoza Measurements Intervals [place] Rate: 76 P: 46 HI: 183 QRS: 31 QRSD: 154 T: 250 QT: 438 QTc: 469 Interpretive Statements SINUS RHYTHM LEFT BUNDLE BRANCH BLOCK Electronically Signed On 11-20-2018 12:04:46 EDT by Samuel Mendoza
[2018-11-21] MEDS ORDERED: NON-FORMULARY MEDICATION 1 EACH EACH (Alendronate Sodium [Fosamax] 70 MG) PO SCH (18:33)
== END 2018-11-19 22:42 | disposition other institution (70) | DRG 281 ==
LOC: INPGRE 17:24